=== PATIENT | female | born 2000 | race Caucasian/White ===

== ENCOUNTER 2022-11-16 16:32 | Emergency (ER) | payer OTHER, SELFPAY ==
--- NOTE | 2022-11-16 16:42 | ED.URI ---
HPI - URI/Sore Throat General Chief Complaint: Upper Respiratory Infection Stated Complaint: cough, sore throat, congestion, bodyache Time Seen by Provider: 11/16/22 16:42 Source: patient and RN notes reviewed History of Present Illness HPI Narrative: 22 yo F presents to urgent care with mom at side. Pt states she has body aches, sore throat, congestion, cough, and slight HARRIS. Pt reports associated a little ear pain bilaterally, dypnea with coughing and exertion, and some chest pain with coughing. Denies any fevers, chills, N/V/D. Pt has taken ibuprofen with minimal relief. Some parts of this dictation were generated by voice recognition software and may contain typographical and/or grammatical inaccuracies. Related Data Allergies Allergy/AdvReac Type Severity Reaction Status Date / Time No Known Allergies Allergy Verified 11/16/22 17:11 Review of Systems Review of Systems: CONSTITUTIONAL: Denies fever, chills, or sweats. EYES: Denies visual changes, redness, or discharge. ENT: Reports otalgia and sore throat CARDIOVASCULAR: Denies palpitations, or edema. Denies any chest pain at this time. RESPIRATORY: Reports cough or dyspnea with coughing and exertion. GASTROINTESTINAL: Denies abdominal pain, nausea, vomiting, or diarrhea. GENITOURINARY: Denies dysuria or hematuria. SKIN: Denies rash or itching. MUSCULOSKELETAL: Reports myalgia. NEUROLOGIC: Reports headache PMFSH Comments At the time of my signature, I reviewed and agree with the nursing past medical, surgical, social, and family history. There is no relevant family history pertinent to the patient complaint. Exam Narrative: GENERAL: This is a well-nourished, well-developed patient, in no apparent distress. HEAD: normocephalic, atraumatic. EYES: PERRL. Sclera clear/white. Vision is grossly intact. EARS: External ears normal, auditory canals clear and without drainage, TMs normal without perforation. Hearing grossly intact. NOSE: External nose normal with no obvious nasal discharge, nares without redness, no rhinorrhea. THROAT: Mucous membranes moist, posterior pharynx clear. NECK: Neck supple, non-tender without lymphadenopathy, masses or thyromegaly. CARDIOVASCULAR: Regular rate and rhythm without murmurs, gallops, or rubs. RESPIRATORY: Clear to auscultation. Breath sounds equal bilaterally. No wheezes, rales, or rhonchi. GASTROINTESTINAL: Abdomen soft, non-tender, nondistended. Bowel sounds are active. No hepato-splenomegaly, or palpable masses. No guarding. SKIN: warm, intact with no suspicious lesions or rash, good texture and turgor. NEURO: awake, alert, and oriented to person, place and time. There were no obvious focal neurologic abnormalities. Course Course Level of Care: Express Care Visit Vital Signs Vital signs: Vital Signs Temperature 98.8 F 11/16/22 16:57 Pulse Rate 110 H 11/16/22 16:57 Respiratory Rate 16 11/16/22 16:57 Blood Pressure 126/84 11/16/22 16:57 Pulse Oximetry 99 11/16/22 16:57 Temperature 98.8 F 11/16/22 16:57 Pulse Rate 110 H 11/16/22 16:57 Respiratory Rate 16 11/16/22 16:57 Blood Pressure 126/84 11/16/22 16:57 Pulse Oximetry 99 11/16/22 16:57 Reviewed MDM - URI/Sore Throat MDM Narrative Medical decision making narrative: Viral illness may last between 7-12days; antibiotic is NOT recommended at this time. Recommend antihistamine such as Benadryl at night time and Claritin/Zyrtec/Bere during the day Cough syrup may cause drowsiness; avoid driving or take it at night time. Use inhaler as needed for cough, wheezing, shortness of breath or chest tightness. Also, recommend symptomatic treatment includes: rest, fluids, increase humidity of the air at home. Recommend Acetaminophen or nonsteroidal anti-inflammatory agents(NSAIDs) as directed in the bottle to reduce fever and/pain/headache. Avoid smoking/second-hand smoke. Limit visits to areas with large crowds. Frequent hand washing or h
[2022-11-16 16:57] VITALS: BP 126/84; PULSE 110; RESP 16; TEMP 37.1; O2SAT 99
== END 2022-11-16 17:19 | disposition home or self-care (01) ==
PROVIDERS: Emergency Provider Nurse Practitioner Family
DX: J06.9 Acute upper respiratory infection, unspecified (principal)
CPT/HCPCS: 87081; 87880; 99213; G0463